=== PATIENT | male | born 1950 | race Caucasian/White ===

== ENCOUNTER 2017-03-19 09:03 | Outpatient (CLI) | payer BC | END 2017-03-19 09:04 | disposition home or self-care (01) | DX: I10 Essential (primary) hypertension (principal); E29.1 Testicular hypofunction ==

== ENCOUNTER 2017-08-06 14:32 | Outpatient (CLI) | payer OTHER ==
--- NOTE | 2017-08-07 08:47 | XRAY Report ---
THREE-VIEW CERVICAL SPINE: 08/06/2017 CLINICAL INDICATION: Neck pain. FINDINGS: AP, lateral, odontoid views of the cervical spine demonstrate moderate degenerative disc a nd facet disease, with disk space narrowing worst at C6-7. The prevertebral soft tissues are unremar kable. No fracture or subluxation is seen. IMPRESSION: MODERATE DEGENERATIVE CHANGES. JOB #: [id number] EXT JOB #:[id number]
--- NOTE | 2017-08-07 08:47 | XRAY Report ---
THREE-VIEW RIGHT SHOULDER: 08/06/2017 CLINICAL INDICATION: Pain. FINDINGS: Internal and external rotational views and a scapular Y view of the right shoulder demonst rate degenerative changes at the glenohumeral and acromioclavicular joints. There is no evidence of fracture or dislocation. No radiopaque foreign body is seen in the soft tissues. IMPRESSION: MILD DEGENERATIVE CHANGES OF THE AC JOINT. JOB #: [id number] EXT JOB #:[id number]
== END 2017-08-06 14:33 | disposition home or self-care (01) ==
LOC: DI.S 14:32
PROVIDERS: ATTEND Nurse Practitioner Family
DX: M50.30 Other cervical disc degeneration, unspecified cervical region (principal); M47.892 Other spondylosis, cervical region; M19.011 Primary osteoarthritis, right shoulder
CPT/HCPCS: 72040